=== PATIENT | male | born 1950 | race Caucasian/White ===

== ENCOUNTER → 2017-08-11 | Outpatient (CLI) | payer OTHER ==
--- NOTE | 2017-08-11 10:43 | DIAGNOSTIC IMAGING REPORT ---
AP STANDING VIEW OF BOTH KNEES; 3 VIEWS RIGHT KNEE CLINICAL HISTORY: Right knee pain. FINDINGS: An AP standing view of both knees with lateral, tunnel, and sunrise views of the right knee are obtained. No prior studies are available for comparison at the time of dictation. The skeletal structures appear osteopenic. No fracture is seen. There is mild tricompartmental degenerative joint space narrowing, greatest at the patellofemoral articulation. There is no evidence of osteochondral defect on the tunnel image. There is a tiny superior patellar enthesophyte. Minimal chondrocalcinosis is suggested peripherally within the medial compartment. There is no joint effusion. The overlying soft tissues are within normal limits. Survey images of the left knee on the frontal view show no acute abnormality. Mild narrowing is seen in the medial compartment. IMPRESSION: 1. No acute bony abnormality is identified in the right knee. 2. Osteopenia and mild degenerative change as above. 3. Suspect mild chondrocalcinosis within the medial compartment of the right knee. Electronically signed by: Karman Bello M.D. 08/11/2017 10:42 AM Dictated Date/Time: 08/11/2017 10:40 AM
== END | disposition home or self-care (01) ==
LOC: C.RDSM 10:25
PROVIDERS: ATTEND Family Medicine
DX: M25.561 Pain in right knee (principal); M85.861 Other specified disorders of bone density and structure, right lower leg

== ENCOUNTER 2020-07-09 08:50 | Inpatient (IN) ==
[2020-07-09] MEDS ORDERED: dexAMETHasone**PF** 10 MG/ML VIAL IV ONE (09:32)
--- NOTE | 2020-07-09 09:40 | Emergency Department Note ---
Impression & Plan COVID-19, Acute dehydration, Hypoxia ED Provider Note NAME: CORTEZ KIRK AGE: 70 SEX: M : 1950 ARRIVES VIA: Walk-In INFORMANT: Patient ED PROVIDER(S): Gael Altman DO CHIEF COMPLAINT: Shortness of breath HPI: Patient is a 70-year-old male Covid positive who presents the ER for cough and worsening shortness of breath. Tested positive around the of this month where he was seen in the ER. Cough has been present for the past 2 weeks. He denies any belly pain, nausea, vomiting, or diarrhea. No dysuria, urgency, or frequency. The shortness of breath has been gradually getting worse over the past couple days. Admits to a mild headache. No change in vision. No other exacerbating or remitting factors. ROS: See above HPI for pertinent positives & negatives. A total of 10 systems reviewed and were otherwise negative. PAST MEDICAL HISTORY:See Below PAST SURGICAL HISTORY:See Below FAMILY HISTORY:See Below SOCIAL HISTORY:See Below HOME MEDICATIONS:See Below ALLERGIES:See Below VITALS:See Below PHYSICAL EXAMINATION: GENERAL: Sitting up in bed, alert, well appearing, well nourished, no distress, non-toxic, on nasal cannula with persistent cough EYE EXAM: normal conjunctiva. OROPHARYNX: no exudate, no erythema, lips, buccal mucosa, and tongue normal and mucous membranes are moist NECK: supple, no nuchal rigidity, no adenopathy, non-tender LUNGS: Clear to auscultation. Normal chest wall mechanics HEART: no murmurs, S1 normal and S2 normal ABDOMEN: abdomen soft, non-tender, normo-active bowel sounds, no masses, no latoya ound or guarding. UPPER EXTREMITIES: upper extremities are grossly normal. LOWER EXTREMITIES: No pitting edema. Calves are equal bilateral NEURO EXAM: Normal sensorium, cranial nerves II-XII grossly intact, normal speech, no gross weakness of arms, no gross weakness of legs. MEDICAL DECISION MAKING: Patient is a 70-year-old male who presents the ER short of breath with upper respiratory symptoms who is Covid positive. IV was established blood was obtained. Labs show no significant leukocytosis or anemia. D-dimer was elevated. BMP with LFTs and troponin was negative. Procalcitonin was negative. Chest x-ray shows suggested slightly worsening. EKG was nondiagnostic. Patient was given fluids IV Decadron. He was updated bedside. He remained on 2 L nasal cannula throughout his stay in the ER was been to the hospital for hypoxia secondary to Covid. Triage Nursing notes reviewed. Limited review of prior medical records performed Vital Signs: reviewed and remarkable for no significant abnormalities Differential diagnosis: Differential diagnoses includes but is not limited to pneumonia, bronchitis, COPD/Asthma exacerbation, pneumothorax, pulmonary embolism, congestive heart failure, acute coronary syndrome ER treatment provided: See below Diagnostics interpreted by me: ECG: Sinus rhythm rate 78 Normal axis No PVCs QTC 446 Cardiac Monitoring: An order was placed for continuous cardiac monitoring. The monitor shows a rate of 94 with sinus rhythm. Laboratory studies: As stated above and show below. Imaging studies: Portable AP upright 1 view of the chest shows worsening multifocal pneumonia Consultation(s): Discussed with hospitalist for further evaluation Procedures: none Critical Care: I have personally spent 31 minutes of critical care time in the direct management of this patient. This includes bedside care, interpretation of diagnostic studies, and testing, discussion with consultants, patient, and family members, and other required patient management activities. This 31 minutes is in excess of all separately billable procedures. Past Med/Surg History Social History Smoking Status: Never smoker Hx Alcohol Use: No Hx Substance Use: No Preferred Language: South African Communication Tools: IPad Beliefs That Will Affect Care: None Current Living Situation: Family Feels Safe at Home: Yes Assistive Devices: Denture - Upper and Denture - Lower Allergies Allergies Allergy/AdvReac Type Severity Reaction Status Date / Time No Known Allergies Allergy Unverified 07/09/20 10:53 Home Meds Home Medications Medication Instructions Recorded Confirmed No Known Home Medications 07/05/20 07/09/20 Results & Data (ED) Vital Signs Vital Signs - 24 hr 07/09/20 09:06 07/09/20 09:18 07/09/20 09:30 Temperature 36.6 C Temperature Source Oral Pulse Rate 96 H 79 77 Pulse Rate [Apical] Pulse Rate from SpO2 Sensor 80 78 Pulse Rhythm Pulse Rhythm [Apical] Pulse Strength [Apical] Respiratory Rate 18 18 22 Respiratory Effort / Characteristics Respiratory Depth Respiratory Pattern Blood Pressure 115/76 167/92 H 162/92 H Blood Pressure [Left Arm] Blood Pressure Mean 89 117 115 Blood Pressure Mean [Left Arm] Blood Pressure Position [Left Arm] Pulse Oximetry 86 L 93 95 Oxygen Delivery Method Room Air Oxygen Flow Rate Sepsis Recent Fever Within 48 Hours No Sepsis New/Unexplained Change in Mental Status No Sepsis Action Taken by Nursing No Action Required Oxygen Flow Rate - Titration Pulse Oximetry Post Tiitration 07/09/20 09:51 07/09/20 10:19 07/09/20 10:30 Temperature Temperature Source Pulse Rate 75 75 77 Pulse Rate [Apical] 76 Pulse Rate from SpO2 Sensor 75 76 Pulse Rhythm Regular Pulse Rhythm [Apical] Regular Pulse Strength [Apical] Normal Respiratory Rate 18 22 22 Respiratory Effort / Characteristics Non-Labored Spontaneous Respiratory Depth Normal Respiratory Pattern Regular Blood Pressure 148/94 H 146/87 H Blood Pressure [Left Arm] 148/94 H Blood Pressure Mean 112 106 Blood Pressure Mean [Left Arm] 112 Blood Pressure Position [Left Arm] Lying Pulse Oximetry 95 96 95 Oxygen Delivery Method Nasal Cannula Oxygen Flow Rate 2 Sepsis Recent Fever Within 48 Hours Sepsis New/Unexplained Change in Mental Status Sepsis Action Taken by Nursing Oxygen Flow Rate - Titration 2 Pulse Oximetry Post Tiitration 95 07/09/20 11:00 Temperature Temperature Source Pulse Rate 71 Pulse Rate [Apical] Pulse Rate from SpO2 Sensor 71 Pulse Rhythm Pulse Rhythm [Apical] Pulse Strength [Apical] Respiratory Rate 22 Respiratory Effort / Characteristics Respiratory Depth Respiratory Pattern Blood Pressure 141/85 H Blood Pressure [Left Arm] Blood Pressure Mean 103 Blood Pressure Mean [Left Arm] Blood Pressure Position [Left Arm] Pulse Oximetry 95 Oxygen Delivery Method Oxygen Flow Rate Sepsis Recent Fever Within 48 Hours Sepsis New/Unexplained Change in Mental Status Sepsis Action Taken by Nursing Oxygen Flow Rate - Titration Pulse Oximetry Post Tiitration Laboratory Data Result diagrams: 07/09/20 10:00 07/09/20 10:00 Lab Results 07/09/20 07/09/20 07/09/20 Range/Units 10:00 10:00 10:00 WBC 7.23 (4.8-10.8) K/uL RBC 4.26 L (4.7-6.1) M/uL Hgb 13.7 L (14.0-18.0) g/dL Hct 39.6 L (42-52) % MCV 93.0 (80-100) fL MCH 32.2 (25-34) pg MCHC 34.6 (32-36) g/dL RDW Std Deviation 48.9 H (36.4-46.3) fL RDW Coeff of Uri 14.4 (11.5-14.5) % Plt Count 402 H (130-400) K/uL MPV 9.5 (7.4-10.4) fL Immature Gran % (Auto) 0.4 % Neut % (Auto) 82.0 % Lymph % (Auto) 9.1 % Isabela % (Auto) 8.3 % Eos % (Auto) 0.1 % Baso % (Auto) 0.1 % Neut # (Auto) 5.92 (1.4-6.5) K/uL Lymph # (Auto) 0.66 L (1.2-3.4) K/uL Isabela # (Auto) 0.60 H (0.11-0.59) K/uL Eos # (Auto) 0.01 (0-0.5) K/uL Baso # (Auto) 0.01 (0-0.2) K/uL Immature Gran # (Auto) 0.03 H (0.00-0.02) K/uL ESR (0-20) mm/hr D-Dimer 1080 H* (0-500) ug/L FEU Sodium 135 L (136-145) mmol/L Potassium 3.6 (3.5-5.1) mmol/L Chloride 102 (98-107) mmol/L Carbon Dioxide 29 (21-32) mmol/L Anion Gap 4.0 (3-11) BUN 14 (7-18) mg/dl Creatinine 0.89 (0.6-1.4) mg/dl Est Cr Clr Drug Dosing Not Reportable Est GFR ( Amer) 101.8 Est GFR (Non-Af Amer) 87.9 BUN/Creatinine Ratio 15.4 (10-20) Glucose 162 H (70-99) mg/dl Calcium 8.6 (8.5-10.1) mg/dl Total Bilirubin 0.6 (0.2-1) mg/dl AST 34 (15-37) U/L ALT 29 (12-78) U/L Alkaline Phosphatase 71 (45-117) U/L Troponin I < 0.015 (0-0.045) ng/ml C-Reactive Protein (0-0.29) mg/dl Total Protein 7.7 (6.4-8.2) gm/dl Albumin 2.2 L (3.4-5.0) gm/dl Globulin 5.5 H (2.5-4.0) gm/dl Albumin/Globulin Ratio 0.4 L (0.9-2) Lipase 139 (73-393) U/L Procalcitonin (0-0.5) ng/ml 07/09/20 07/09/20 07/09/20 Range/Units 10:00 10:00 10:00 WBC (4.8-10.8) K/uL RBC (4.7-6.1) M/uL Hgb (14.0-18.0) g/dL Hct (42-52) % MCV (80-100) fL MCH (25-34) pg MCHC (32-36) g/dL RDW Std Deviation (36.4-46.3) fL RDW Coeff of Uri (11.5-14.5) % Plt Count (130-400) K/uL MPV (7.4-10.4) fL Immature Gran % (Auto) % Neut % (Auto) % Lymph % (Auto) % Isabela % (Auto) % Eos % (Auto) % Baso % (Auto) % Neut # (Auto) (1.4-6.5) K/uL Lymph # (Auto) (1.2-3.4) K/uL Isabela # (Auto) (0.11-0.59) K/uL Eos # (Auto) (0-0.5) K/uL Baso # (Auto) (0-0.2) K/uL Immature Gran # (Auto) (0.00-0.02) K/uL ESR 70 H (0-20) mm/hr D-Dimer (0-500) ug/L FEU Sodium (136-145) mmol/L Potassium (3.5-5.1) mmol/L Chloride (98-107) mmol/L Carbon Dioxide (21-32) mmol/L Anion Gap (3-11) BUN (7-18) mg/dl Creatinine (0.6-1.4) mg/dl Est Cr Clr Drug Dosing Est GFR ( Amer) Est GFR (Non-Af Amer) BUN/Creatinine Ratio (10-20) Glucose (70-99) mg/dl Calcium (8.5-10.1) mg/dl Total Bilirubin (0.2-1) mg/dl AST (15-37) U/L ALT (12-78) U/L Alkaline Phosphatase (45-117) U/L Troponin I (0-0.045) ng/ml C-Reactive Protein 9.63 H (0-0.29) mg/dl Total Protein (6.4-8.2) gm/dl Albumin (3.4-5.0) gm/dl Globulin (2.5-4.0) gm/dl Albumin/Globulin Ratio (0.9-2) Lipase (73-393) U/L Procalcitonin 0.08 (0-0.5) ng/ml Administered Medications Enoxaparin Sodium (Enoxaparin Inj 40 Mg/0.4 Ml Syr) 40 mg SQ Q12 TISH Stop: 08/08/20 12:14 Last Admin: 07/09/20 13:50 Dose: 40 mg Documented by: [id number] Discontinued Medications Dexamethasone Sodium Phosphate (DexamethasonePf 10 Mg/Ml Vial) 6 mg IV NOW ONE Stop: 07/09/20 09:33 Last Admin: 07/09/20 10:00 Dose: 6 mg Documented by: [id number] Imaging Data Radiologist's Impression: Chest X-Ray 07/09/20 09:31 XR chest 1V portable CLINICAL HISTORY: Atypical chest pain COMPARISON STUDY: 07/05/2020 FINDINGS: The cardiac and mediastinal contours remain stable. There is slight progression in the bilateral pulmonary airspace opacities consistent with a multifocal pneumonia. There are no significant pleural effusions.[ IMPRESSION: 1. Slight progression in the bilateral pulmonary airspace opacities suspicious for a multifocal pneumonia possibly viral ACT 112: Negative or not required by law. Electronically signed by: Arthur Pope M.D. 07/09/2020 9:51 AM Discharge Plan Visit Data Chief Complaint: Shortness of Breath/Dyspnea Stated Complaint: SOB ED Provider: Gael Altman Discharge Problem: COVID-19, Acute dehydration, Hypoxia Patient Disposition: Admitted As Inpatient Discharge Instructions Interventions: ED Discharge Assessment Last Done: 07/09/20 12:20
--- NOTE | 2020-07-09 09:52 | XRay Report ---
XR chest 1V portable CLINICAL HISTORY: Atypical chest pain COMPARISON STUDY: 07/05/2020 FINDINGS: The cardiac and mediastinal contours remain stable. There is slight progression in the bila teral pulmonary airspace opacities consistent with a multifocal pneumonia. There are no significant p leural effusions.[ IMPRESSION: 1. Slight progression in the bilateral pulmonary airspace opacities suspicious for a multifocal pneum onia possibly viral ACT 112: Negative or not required by law. Electronically signed by: Arthur Pope M.D. 07/09/2020 9:51 AM
[2020-07-09 10:19] LABS: Basophils # (auto) 0.01 K/uL (0-0.2); Basophils % (auto) 0.1 %; Eosinophils # (auto) 0.01 K/uL (0-0.5); Eosinophils % (auto) 0.1 %; Hematocrit (blood only) 39.6 % (42-52); Hemoglobin 13.7 g/dL (14.0-18.0); Immature Granulocytes # (auto) 0.03 K/uL (0.00-0.02); Immature Granulocytes % (auto) 0.4 %; Lymphocytes # (auto) 0.66 K/uL (1.2-3.4); Lymphocytes % (auto) 9.1 %; Mean Corpuscular Hemoglobin 32.2 pg (25-34); Mean Corpuscular Hgb Conc 34.6 g/dL (32-36); Mean Platelet Volume 9.5 fL (7.4-10.4); Monocytes % (auto) 8.3 %; Neutrophils # (auto) 5.92 K/uL (1.4-6.5); Platelet Count 402 K/uL (130-400); RDW Coefficient of Variation 14.4 % (11.5-14.5); RDW Standard Deviation 48.9 fL (36.4-46.3); Red Blood Count 4.26 M/uL (4.7-6.1); White Blood Count 7.23 K/uL (4.8-10.8)
[2020-07-09 10:40] LABS: Alanine Aminotransferase 29 U/L (12-78); Albumin Level 2.2 gm/dl (3.4-5.0); Aspartate Aminotransferase 34 U/L (15-37); BUN Creatinine Ratio 15.4 (10-20); Blood Urea Nitrogen 14 mg/dl (7-18); Calcium 8.6 mg/dl (8.5-10.1); Carbon Dioxide 29 mmol/L (21-32); Chloride 102 mmol/L (98-107); Est GFR (African American) 101.8; Est GFR (Non-African American) 87.9; Glucose 162 mg/dl (70-99); Lipase 139 U/L (73-393); Potassium 3.6 mmol/L (3.5-5.1); Sodium 135 mmol/L (136-145)
[2020-07-09 10:52] LABS: Albumin Globulin Ratio 0.4 (0.9-2); Alkaline Phosphatase 71 U/L (45-117); Bilirubin,Total 0.6 mg/dl (0.2-1); Globulin 5.5 gm/dl (2.5-4.0); Total Protein 7.7 gm/dl (6.4-8.2); Troponin I < 0.015 ng/ml (0-0.045)
--- NOTE | 2020-07-09 11:41 | History & Physical Report ---
Date of Service July 09, 2020 Assessment & Plan (1) COVID-19: Admit to tele Patient recevied decadron IV 6 mg. will continue Decadron 6 mg PO daily Will place on a regular diet. Patient does not have signifcant PMH as he does not follow with a PCP. will place on lovenox BID dose, obtained inflammatory markers. currently on 2L NC. will monitor trend. will hold off antibioitics unless procal is positive or patient develops fever. Not a candidate for remdesevir Full code DVT proph (2) Weakness: From above. will monitor, will likely require PT/OT eval as he recovers. would want us to call her sister for updates as she speaks German. Her agrees to this. Ellen Gomez wifes sister: :[phone] History of Present Illness Chief Complaint: COVID worsening. Primary Care Provider: Evi George PA-C History obtained via immigration lawyer. at bedside. 70 yo male with no significant past medical history. Presents to the ER with 2 week history of fatigue cough with worsening SHOB. Patient came to the hospital about 4 days ago for these symptoms, but was found to be on Room air and did not meet criteria for admission. He states though that over the past 2 days, his cough and SOB has become worse, and patient also has a poor apetite. This prompted the patient to return. PMH: Lipoma reolved over 3 years ago from neck Allergies Allergy/AdvReac Type Severity Reaction Status Date / Time No Known Allergies Allergy Unverified 07/09/20 10:53 Home Medications Medication Instructions Recorded Confirmed Type No Known Home Medications 07/05/20 07/09/20 History Past Med/Surg History Social History Smoking Status: Never smoker Hx Alcohol Use: No Hx Substance Use: No Preferred Language: Ethiopian Communication Tools: IPad Beliefs That Will Affect Care: None Current Living Situation: Family Feels Safe at Home: Yes Assistive Devices: Oxygen - Continuous Review of Systems Constitutional: + chills, + fatigue, + malaise and + weakness; no fever and no sweats Eyes: no blind spots and no discharge Ear, Nose, Mouth, Throat: no ear pain and no dizziness Respiratory: + cough and + dyspnea Cardiovascular: no chest pain Gastrointestinal: no bloating Genitourinary: no urinary frequency Musculoskeletal: no radicular pain Integumentary: no rash Neurologic: no numbness Psychiatric: no behavioral changes Endocrine: no polydipsia Hematologic / Lymphatic: no easy bleeding and no lymphadenopathy Allergy / Immunological: no lip swelling Physical Exam Constitutional: WD/WN, vitals as above Eyes: PERRL, conjunctivae normal, anicteric sclerae ENMT: external ear and nose normal, oropharynx normal Neck: trachea midline, no thyromegaly Respiratory: + respiratory distress; does not use accessory muscles Auscultation: + rales (bilateral) Cardiovascular: RRR, no murmur, no edema Gastrointestinal (Abdomen): normal bowel sounds, soft, nontender, no hepatosplenomegaly Musculoskeletal: no cyanosis or clubbing, extremities motor strength 5/5 Skin: no rashes, warm and dry Neurologic: PERRL, EOMI, accommodation nl, no face palsy, no dysarthria Psychiatric: Orientation: alert Results & Data Results & Data ([facility]) Vital Signs (Past 12 Hours) Vital Signs Temp Pulse Pulse Resp BP BP Pulse Ox 07/09/20 11:00 71 22 141/85 H 95 07/09/20 10:30 77 22 146/87 H 95 07/09/20 10:19 75 22 148/94 H 96 07/09/20 09:51 75 76 18 148/94 H 95 07/09/20 09:30 77 22 162/92 H 95 07/09/20 09:18 79 18 167/92 H 93 07/09/20 09:06 36.6 C 96 H 18 115/76 86 L PG Care Time/CCT Total # of Minutes Spent Total Time Spent with Patient: Total time spent is greater than 50% in coordination of care (as documented) at patient's floor/unit and/or counseling patient: Coding Level of Care Code 56211 Initial Inpt Care Lvl 3 Diagnoses COVID-19 U07.1 Weakness R53.1
[2020-07-09 12:50] LABS: D Dimer 1080 ug/L FEU (0-500)
[2020-07-09] MEDS: ENOXAPARIN INJ 40 MG/0.4 ML SYR SQ SCH ×2 (13:50→22:45)
--- NOTE | 2020-07-09 17:38 | Electrocardiogram Report ---
Test Reason : Blood Pressure : / mmHG Vent. Rate : 078 BPM Atrial Rate : 078 BPM P-R Int : 160 ms QRS Dur : 098 ms QT Int : 392 ms P-R-T Axes : 033 033 058 degrees QTc Int : 446 ms Normal sinus rhythm Normal ECG When compared with ECG of 05-JUL-2020 11:43, No significant change was found Confirmed by Chandu Rodriguez ([id number]) on 07/09/2020 5:38:20 PM Referred By: SELF Confirmed By:Will Rodriguez
[2020-07-09] MEDS: BENZONATATE 100 MG CAPSULE PO SCH (22:44)
[2020-07-10 08:04] LABS: Basophils # (auto) 0.01 K/uL (0-0.2); Basophils % (auto) 0.1 %; Hemoglobin 13.9 g/dL (14.0-18.0); Immature Granulocytes # (auto) 0.04 K/uL (0.00-0.02); Immature Granulocytes % (auto) 0.5 %; Lymphocytes # (auto) 0.79 K/uL (1.2-3.4); Lymphocytes % (auto) 10.3 %; Mean Corpuscular Hemoglobin 32.3 pg (25-34); Mean Corpuscular Hgb Conc 34.8 g/dL (32-36); Mean Corpuscular Volume 92.8 fL (80-100); Mean Platelet Volume 9.8 fL (7.4-10.4); Monocytes # (auto) 0.69 K/uL (0.11-0.59); Neutrophils # (auto) 6.15 K/uL (1.4-6.5); Neutrophils % (auto) 80.1 %; Platelet Count 492 K/uL (130-400); RDW Coefficient of Variation 14.3 % (11.5-14.5); RDW Standard Deviation 48.7 fL (36.4-46.3); Red Blood Count 4.31 M/uL (4.7-6.1); White Blood Count 7.68 K/uL (4.8-10.8)
[2020-07-10 08:39] LABS: BUN Creatinine Ratio 26.2 (10-20); Calcium 9.6 mg/dl (8.5-10.1); Creatinine Clr Calc Pharmacy 75.9 ml/min; Est GFR (African American) 109.2; Est GFR (Non-African American) 94.3; Potassium 3.9 mmol/L (3.5-5.1)
[2020-07-10] MEDS ORDERED: ACETAMINOPHEN 500 MG TAB PO PRN (08:41)
[2020-07-10] MEDS ORDERED: dexAMETHasone 1 MG TAB PO SCH (09:00)
[2020-07-10] MEDS ORDERED: BENZONATATE 100 MG CAPSULE PO SCH (09:00)
[2020-07-10] MEDS: dexAMETHasone 6 MG in SYRINGE 0 ML IV SCH (09:48)
[2020-07-10] MEDS: BENZONATATE 100 MG CAPSULE PO SCH ×3 (09:49→21:21)
[2020-07-10] MEDS: ENOXAPARIN INJ 40 MG/0.4 ML SYR SQ SCH ×2 (09:50→21:21)
--- NOTE | 2020-07-10 14:51 | Electrocardiogram Report ---
Test Reason : Blood Pressure : / mmHG Vent. Rate : 084 BPM Atrial Rate : 084 BPM P-R Int : 152 ms QRS Dur : 098 ms QT Int : 390 ms P-R-T Axes : 059 014 045 degrees QTc Int : 460 ms Normal sinus rhythm Nonspecific ST abnormality Abnormal ECG When compared with ECG of 09-JUL-2020 09:51, No significant change was found Confirmed by Chandu Rodriguez ([id number]) on 07/10/2020 2:51:30 PM Referred By: REFERRED SELF Confirmed By:Will Rodriguez
--- NOTE | 2020-07-10 16:06 | Hospitalist Progress Note ---
Date of Service July 10, 2020 Assessment & Plan (1) COVID-19: Shortness of breathPneumonia due to coronavirus disease 2019 Presented after approximately 2 weeks of symptoms with headache, body aches, generalized weakness, and cough. He actually had an episode of syncope several days prior to admission and was sent home from the ER on that day. Now presents with worsening and was found to have acute respiratory failure with hypoxia requiring oxygen Chest x-ray with multifocal pneumonia consistent with viral pneumonia Troponin negative, procalcitonin negative, CRP elevated at 9.63, ESR elevated at 70, D-dimer elevated at 1080, LFTs negative. Pulse ox was 86% on arrival and he is now much improved on 2 L nasal cannula -Continue telemetry monitoring -Continue Decadron but change to IV in case having poor absorption issues due to viral syndrome -He is not a candidate for remdesivir or convalescent plasma as it has been about 2 weeks of symptoms at this point -Continue supplemental O2 to keep pulse ox greater than 90% -Continue prone position periodically throughout the day as discussed with patient -Continue Tessalon Perles scheduled as needed -Chest pain is relieved with Tylenol and is likely due to inflammation/pleurisy -Lovenox 40 mg SQ twice daily for DVT prophylaxis -Follow CBC, CMP, CRP in the morning (2) Weakness: From above. will monitor, will likely require PT/OT eval prior to discharge (3) Hypoxia: As above (4) Chest pain: Has been having constant chest pain for several days which was improved with Tylenol here today D-dimer is elevated but likely secondary to Covid Hypoxia secondary to bilateral multifocal infiltrates ECG is with nonspecific ST-T wave changes but nothing of significance and troponin is negative x2 Chest pain likely secondary to pleurisy and will continue Tylenol as needed (5) DVT prophylaxis: Lovenox SQ twice daily given high risk for DVT/PE Disposition-continue telemetry status Full code would want us to call her sister for updates as she speaks Croatian. Her agrees to this. Ellen Gomez 's sister: [phone] Admission and Anticipated Discharge Date Admission Date: July 09, 2020 Subjective Communicated with pt using the [place] professor of literacy on the iPad. He reports feeling so much better. He had some constant chest pain for a while which is now resolved after taking tylenol this AM. ECGs unchanged and without ischemia. No calf pain. No SOB and still with cough. Is lying prone when I saw him and plans on continuing to do so. No abdominal pain, is eating well. Moving his bowels, no diarrhea, and is making urine. Tele with NSR rates 50s-70s, PACs and some bigem Review of Systems Review of Systems: All systems reviewed & are unremarkable except as noted in HPI & below Physical Exam Constitutional: WD/WN, vitals as above Eyes: PERRL, conjunctivae normal, anicteric sclerae ENMT: external ear and nose normal, oropharynx normal Neck: trachea midline, no thyromegaly Respiratory: normal respiratory effort, lungs clear to auscultation Cardiovascular: RRR, no murmur, no edema Chest (Breasts): Chest: normal inspection of chest Gastrointestinal (Abdomen): normal bowel sounds, soft, nontender, no hepatosplenomegaly Musculoskeletal: Extremities: extremities normal to inspection; no cyanosis and no clubbing Skin: no rashes, warm and dry Neurologic: moves all extremities and awake; no focal motor deficits Psychiatric: A+Ox3, euthymic affect Lymphatic: no lymphedema Results & Data Results & Data ([facility]) Vital Signs (Past 12 Hours) Vital Signs Temp Pulse Pulse Resp BP Pulse Ox Pulse Ox 07/10/20 15:05 93 07/10/20 13:50 96 07/10/20 11:21 36.5 C 76 19 124/83 92 07/10/20 11:07 92 07/10/20 10:22 91 07/10/20 09:00 88 L 07/10/20 08:00 65 92 07/10/20 07:27 36.7 C 65 18 154/85 H 89 L 07/10/20 04:00 58 L Laboratory Results 07/10/20 07/10/20 07/10/20 Range/Units 09:00 07:21 07:21 WBC 7.68 (4.8-10.8) K/uL RBC 4.31 L (4.7-6.1) M/uL Hgb 13.9 L (14.0-18.0) g/dL Hct 40.0 L (42-52) % MCV 92.8 (80-100) fL MCH 32.3 (25-34) pg MCHC 34.8 (32-36) g/dL RDW Std Deviation 48.7 H (36.4-46.3) fL RDW Coeff of Uri 14.3 (11.5-14.5) % Plt Count 492 H (130-400) K/uL MPV 9.8 (7.4-10.4) fL Immature Gran % (Auto) 0.5 % Neut % (Auto) 80.1 % Lymph % (Auto) 10.3 % Teller % (Auto) 9.0 % Eos % (Auto) 0.0 % Baso % (Auto) 0.1 % Neut # (Auto) 6.15 (1.4-6.5) K/uL Lymph # (Auto) 0.79 L (1.2-3.4) K/uL Teller # (Auto) 0.69 H (0.11-0.59) K/uL Eos # (Auto) 0.00 (0-0.5) K/uL Baso # (Auto) 0.01 (0-0.2) K/uL Immature Gran # (Auto) 0.04 H (0.00-0.02) K/uL Sodium 136 (136-145) mmol/L Potassium 3.9 (3.5-5.1) mmol/L Chloride 103 (98-107) mmol/L Carbon Dioxide 25 (21-32) mmol/L Anion Gap 8.0 (3-11) BUN 20 H (7-18) mg/dl Creatinine 0.75 (0.6-1.4) mg/dl Est Cr Clr Drug Dosing 75.9 ml/min Est GFR ( Amer) 109.2 Est GFR (Non-Af Amer) 94.3 BUN/Creatinine Ratio 26.2 H (10-20) Glucose 129 H (70-99) mg/dl Calcium 9.6 (8.5-10.1) mg/dl Troponin I < 0.015 (0-0.045) ng/ml ECG Additional Comments: ECG on 07/10/2020 at 8:57 AM with normal sinus rhythm, rate 84, nonspecific ST abnormality in inferior leads, no significant change from previous PG Care Time/CCT Total # of Minutes Spent Total Time Spent with Patient: Total time spent is greater than 50% in coordination of care (as documented) at patient's floor/unit and/or counseling patient: Coding Level of Care Code 65359 Subseq Hosp Care Lvl 3 Diagnoses COVID-19 U07.1 Weakness R53.1 Hypoxia R09.02 Chest pain R07.9 DVT prophylaxis Z29.9
[2020-07-11] MEDS: ENOXAPARIN INJ 40 MG/0.4 ML SYR SQ SCH ×2 (08:29→20:36)
[2020-07-11] MEDS: BENZONATATE 100 MG CAPSULE PO SCH ×3 (08:30→20:36)
[2020-07-11] MEDS: dexAMETHasone 6 MG in SYRINGE 0 ML IV SCH (08:30)
[2020-07-11] MEDS ORDERED: ALBUTEROL HFA 8 GM INHALER INH ONE (14:21)
[2020-07-11] MEDS ORDERED: ALBUTEROL HFA 8 GM INHALER INH PRN (14:21)
--- NOTE | 2020-07-11 14:22 | Hospitalist Progress Note ---
Date of Service July 11, 2020 Assessment & Plan (1) COVID-19: Pneumonia due to coronavirus disease 2019 Presented after approximately 2 weeks of symptoms with headache, body aches, generalized weakness, shortness of breath, and cough. He actually had an episode of syncope several days prior to admission and was sent home from the ER on that day. Now presents with worsening and was found to have acute respiratory failure with hypoxia requiring oxygen Chest x-ray with multifocal pneumonia consistent with viral pneumonia Troponin negative, procalcitonin negative, CRP elevated at 9.63, ESR elevated at 70, D-dimer elevated at 1080, LFTs negative. Pulse ox was 86% on arrival and he is now improved however oxygenation requirement has gone up to 3 L. He is in no respiratory distress Remains in sinus rhythm on telemetry -Continue telemetry monitoring -Continue Decadron 6 mg IV once daily x10-day course -He is not a candidate for remdesivir or convalescent plasma as it has been about 2 weeks of symptoms at this point -Continue supplemental O2 to keep pulse ox greater than 90% and wean off as tolerated -Add flutter valve and incentive spirometry -Continue prone position periodically throughout the day as discussed with patient -Continue Tessalon Perles scheduled as needed -Chest pain is relieved with Tylenol and is likely due to inflammation/pleurisy -Lovenox 40 mg SQ twice daily for DVT prophylaxis -Follow CBC, CMP, CRP in the morning (2) Weakness: From above. will monitor, will likely require PT/OT eval prior to discharge-we will add for tomorrow (3) Hypoxia: As above (4) Chest pain: Has been having constant chest pain for several days which was improved with Tylenol here today D-dimer is elevated but likely secondary to Covid Hypoxia secondary to bilateral multifocal infiltrates ECG is with nonspecific ST-T wave changes but nothing of significance and troponin is negative x2 Chest pain likely secondary to pleurisy and will continue Tylenol as needed (5) DVT prophylaxis: Lovenox SQ twice daily given high risk for DVT/PE Disposition-continue telemetry status Full code would want us to call her sister for updates as she speaks Indonesian. Her agrees to this. Ellen Gomez 's sister: [phone] Admission and Anticipated Discharge Date Admission Date: July 09, 2020 Subjective Patient reports feeling "okay" today. Still having a cough but not short of breath. Is up to 3 L on the nasal cannula. I described for him the use of a flutter valve which I ordered. He is out of bed to chair. He is eating meals and moving his bowels. Telemetry with normal sinus rhythm with rates in the 50s to 60s Review of Systems Review of Systems: All systems reviewed & are unremarkable except as noted in HPI & below Physical Exam Constitutional: WD/WN, vitals as above Eyes: + anicteric sclerae Neck: trachea midline, no thyromegaly Respiratory: normal respiratory effort Auscultation: + crackles (At lower lung alvarez bilaterally); no rhonchi and no wheezes Cardiovascular: RRR, no murmur, no edema Chest (Breasts): Chest: normal inspection of chest Gastrointestinal (Abdomen): normal bowel sounds, soft, nontender, no hepatosplenomegaly Musculoskeletal: Extremities: extremities normal to inspection; no cyanosis and no clubbing Skin: no rashes, warm and dry Neurologic: moves all extremities and awake; no focal motor deficits Lymphatic: no lymphedema Results & Data Results & Data ([facility]) Vital Signs (Past 12 Hours) Vital Signs Temp Pulse Pulse Resp BP Pulse Ox 07/11/20 11:24 36.7 C 63 19 157/85 H 90 07/11/20 07:15 36.6 C 62 18 173/88 H 93 07/11/20 07:00 60 07/11/20 03:27 36.7 C 65 18 168/86 H 89 L PG Care Time/CCT Total # of Minutes Spent Total Time Spent with Patient: Total time spent is greater than 50% in coordination of care (as documented) at patient's floor/unit and/or counseling patient: Coding Level of Care Code 64360 Subseq Hosp Care Lvl 2 Diagnoses COVID-19 U07.1 Weakness R53.1 Hypoxia R09.02 Chest pain R07.9 DVT prophylaxis Z29.9
[2020-07-12 06:46] LABS: Basophils # (auto) 0.01 K/uL (0-0.2); Basophils % (auto) 0.1 %; Hematocrit (blood only) 39.2 % (42-52); Hemoglobin 13.8 g/dL (14.0-18.0); Immature Granulocytes # (auto) 0.15 K/uL (0.00-0.02); Immature Granulocytes % (auto) 1.5 %; Lymphocytes # (auto) 1.43 K/uL (1.2-3.4); Lymphocytes % (auto) 14.2 %; Mean Corpuscular Hgb Conc 35.2 g/dL (32-36); Mean Corpuscular Volume 93.8 fL (80-100); Mean Platelet Volume 9.4 fL (7.4-10.4); Monocytes # (auto) 0.91 K/uL (0.11-0.59); Neutrophils # (auto) 7.59 K/uL (1.4-6.5); Neutrophils % (auto) 75.2 %; Platelet Count 559 K/uL (130-400); RDW Coefficient of Variation 14.5 % (11.5-14.5); RDW Standard Deviation 49.3 fL (36.4-46.3); Red Blood Count 4.18 M/uL (4.7-6.1); White Blood Count 10.09 K/uL (4.8-10.8)
[2020-07-12 07:15] LABS: Albumin Level 2.2 gm/dl (3.4-5.0); BUN Creatinine Ratio 25.1 (10-20); C Reactive Protein 2.24 mg/dl (0-0.29); Calcium 9.3 mg/dl (8.5-10.1); Creatinine Clr Calc Pharmacy 64.7 ml/min; Est GFR (African American) 102.3; Est GFR (Non-African American) 88.3; Magnesium 2.6 mg/dl (1.8-2.4); Potassium 3.7 mmol/L (3.5-5.1)
[2020-07-12 07:18] LABS: Albumin Globulin Ratio 0.4 (0.9-2); Bilirubin,Total 0.5 mg/dl (0.2-1); Globulin 5.1 gm/dl (2.5-4.0); Total Protein 7.3 gm/dl (6.4-8.2)
[2020-07-12] MEDS: ENOXAPARIN INJ 40 MG/0.4 ML SYR SQ SCH ×2 (08:21→20:27)
[2020-07-12] MEDS: BENZONATATE 100 MG CAPSULE PO SCH ×2 (08:21→14:57)
[2020-07-12] MEDS: dexAMETHasone 6 MG in SYRINGE 0 ML IV SCH (08:21)
[2020-07-12] MEDS: ALBUTEROL HFA 8 GM INHALER INH SCH ×2 (11:57→19:23)
[2020-07-12] MEDS ORDERED: dexAMETHasone 14 MG in SYRINGE 0 ML IV ONE (16:25)
[2020-07-12] MEDS ORDERED: BENZONATATE 100 MG CAPSULE PO PRN (16:56)
[2020-07-12] MEDS ORDERED: dexAMETHasone 14 MG in DEXTROSE 5% 25 ML IV ONE (17:00)
--- NOTE | 2020-07-12 20:14 | Hospitalist Progress Note ---
Date of Service July 12, 2020 Assessment & Plan (1) COVID-19: Pneumonia due to coronavirus disease 2019 Presented after approximately 2 weeks of symptoms with headache, body aches, generalized weakness, shortness of breath, and cough. He actually had an episode of syncope several days prior to admission and was sent home from the ER on that day. Now presents with worsening and was found to have acute respiratory failure with hypoxia requiring oxygen Chest x-ray with multifocal pneumonia consistent with viral pneumonia Troponin negative, procalcitonin negative, CRP elevated at 9.63, ESR elevated at 70, D-dimer elevated at 1080, LFTs negative. Pulse ox was 86% on arrival and he was initially improved however oxygenation requirement has gone up over the last 2 days to 13 L nasal cannula today He is in no respiratory distress Remains in sinus rhythm on telemetry with sinus pauses as below CRP has trended downward today to 2.24 He was given incentive spirometry today and was able to be weaned back down to 8 L nasal cannula He continues prone positioning intermittently -Continue telemetry monitoring -Continue Decadron but will increase dose to 20 mg IV once daily x 5 day course followed by 10 mg x 5-day course -Ordered high flow nasal cannula Vapotherm for use if needs more than 10 L by nasal cannula -He is not a candidate for remdesivir or convalescent plasma as it has been about 2 weeks of symptoms at this point -Continue supplemental O2 to keep pulse ox greater than 90% and wean off as tolerated -Add flutter valve and incentive spirometry-he did not have an incentive spirometer in the room despite it being ordered yesterday-this was obtained by nursing today -Continue Tessalon Perles but make as needed rather than scheduled -Chest pain is relieved with Tylenol and is likely due to inflammation/pleurisy -Continue Lovenox 40 mg SQ twice daily for DVT prophylaxis -Follow CBC, CMP, CRP in the morning (2) Weakness: From above. will monitor, will likely require PT/OT eval prior to discharge (3) Hypoxia: As above (4) Chest pain: Has been having constant chest pain for several days which was improved with Tylenol D-dimer is elevated but likely secondary to Covid Hypoxia secondary to bilateral multifocal infiltrates ECG is with nonspecific ST-T wave changes but nothing of significance and troponin is negative x2 Chest pain likely secondary to pleurisy and will continue Tylenol as needed (5) Sinus pause: With several 2-3.8-second sinus pauses versus blocked beats seen on teleme try in the last 1 to 2 days They are asymptomatic each time and not necessarily associated with sleeping ECG performed again today here is normal We will review telemetry with the wick tender if this continues to happen but most likely not concerning Continue to monitor on telemetry (6) DVT prophylaxis: Lovenox SQ twice daily given high risk for DVT/PE Disposition-continue telemetry status Full code would want us to call her sister for updates as she speaks Iraqi. Her agrees to this. Ellen Gomez 's sister: [phone] Admission and Anticipated Discharge Date Admission Date: July 09, 2020 Subjective Patient reports still coughing and short of breath at times. Has no other real complaints. He has had multiple 2 to 3-second pauses versus blocked beats on telemetry that are asymptomatic in the last 24 hours. He did however have an increasing oxygen demand through the night and day and was at 13 L when I saw him. He was able to demonstrate for nursing how to use incentive spirometer and was able to be weaned down then to 8 L nasal cannula. Review of Systems Review of Systems: All systems reviewed & are unremarkable except as noted in HPI & below Physical Exam Constitutional: WD/WN, vitals as above Eyes: + anicteric sclerae Neck: trachea midline, no thyromegaly Respiratory: normal respiratory effort Auscultation: + crackles (At lower lung alvarez bilaterally); no rhonchi and no wheezes Cardiovascular: RRR, no murmur, no edema Chest (Breasts): Chest: normal inspection of chest Gastrointestinal (Abdomen): normal bowel sounds, soft, nontender, no hepatosplenomegaly Musculoskeletal: Extremities: extremities normal to inspection; no cyanosis and no clubbing Skin: no rashes, warm and dry Neurologic: moves all extremities and awake; no focal motor deficits Psychiatric: Orientation: alert Eye Contact: good eye contact Speech: normal rate/rhythm/volume of speech Lymphatic: no lymphedema Results & Data Results & Data ([facility]) Vital Signs (Past 12 Hours) Vital Signs Temp Pulse Pulse Resp BP Pulse Ox 07/12/20 19:49 36.7 C 66 20 134/77 93 07/12/20 19:23 60 18 92 07/12/20 18:45 96 07/12/20 18:17 96 07/12/20 18:10 97 07/12/20 17:53 95 07/12/20 17:43 61 20 162/92 H 94 07/12/20 15:29 37.0 C 64 20 131/78 98 07/12/20 15:20 98 07/12/20 14:30 55 L 07/12/20 13:56 95 07/12/20 12:06 87 L 07/12/20 12:00 70 18 87 L 07/12/20 11:30 37.1 C 71 22 161/80 H 91 07/12/20 10:26 95 07/12/20 10:05 90 07/12/20 09:50 86 L Laboratory Results 07/12/20 07/12/20 Range/Units 06:23 06:23 WBC 10.09 (4.8-10.8) K/uL RBC 4.18 L (4.7-6.1) M/uL Hgb 13.8 L (14.0-18.0) g/dL Hct 39.2 L (42-52) % MCV 93.8 (80-100) fL MCH 33.0 (25-34) pg MCHC 35.2 (32-36) g/dL RDW Std Deviation 49.3 H (36.4-46.3) fL RDW Coeff of Uri 14.5 (11.5-14.5) % Plt Count 559 H (130-400) K/uL MPV 9.4 (7.4-10.4) fL Immature Gran % (Auto) 1.5 % Neut % (Auto) 75.2 % Lymph % (Auto) 14.2 % [place] % (Auto) 9.0 % Eos % (Auto) 0.0 % Baso % (Auto) 0.1 % Neut # (Auto) 7.59 H (1.4-6.5) K/uL Lymph # (Auto) 1.43 (1.2-3.4) K/uL [place] # (Auto) 0.91 H (0.11-0.59) K/uL Eos # (Auto) 0.00 (0-0.5) K/uL Baso # (Auto) 0.01 (0-0.2) K/uL Immature Gran # (Auto) 0.15 H (0.00-0.02) K/uL Sodium 139 (136-145) mmol/L Potassium 3.7 (3.5-5.1) mmol/L Chloride 106 (98-107) mmol/L Carbon Dioxide 28 (21-32) mmol/L Anion Gap 5.0 (3-11) BUN 22 H (7-18) mg/dl Creatinine 0.88 (0.6-1.4) mg/dl Est Cr Clr Drug Dosing 64.7 ml/min Est GFR ( Amer) 102.3 Est GFR (Non-Af Amer) 88.3 BUN/Creatinine Ratio 25.1 H (10-20) Glucose 96 (70-99) mg/dl Calcium 9.3 (8.5-10.1) mg/dl Magnesium 2.6 H (1.8-2.4) mg/dl Total Bilirubin 0.5 (0.2-1) mg/dl AST 19 (15-37) U/L ALT 22 (12-78) U/L Alkaline Phosphatase 70 (45-117) U/L C-Reactive Protein 2.24 H (0-0.29) mg/dl Total Protein 7.3 (6.4-8.2) gm/dl Albumin 2.2 L (3.4-5.0) gm/dl Globulin 5.1 H (2.5-4.0) gm/dl Albumin/Globulin Ratio 0.4 L (0.9-2) PG Care Time/CCT Total # of Minutes Spent Total Time Spent with Patient: Total time spent is greater than 50% in coordination of care (as documented) at patient's floor/unit and/or counseling patient: Coding Level of Care Code 07790 Subseq Hosp Care Lvl 3 Diagnoses COVID-19 U07.1 Weakness R53.1 Hypoxia R09.02 Chest pain R07.9 Sinus pause I45.5 DVT prophylaxis Z29.9
[2020-07-13] MEDS: ALBUTEROL HFA 8 GM INHALER INH SCH ×2 (00:41→07:25)
[2020-07-13 07:42] LABS: Basophils # (auto) 0.01 K/uL (0-0.2); Basophils % (auto) 0.1 %; Hematocrit (blood only) 39.1 % (42-52); Hemoglobin 13.5 g/dL (14.0-18.0); Immature Granulocytes # (auto) 0.16 K/uL (0.00-0.02); Immature Granulocytes % (auto) 1.9 %; Lymphocytes # (auto) 1.17 K/uL (1.2-3.4); Lymphocytes % (auto) 13.9 %; Mean Corpuscular Hemoglobin 32.5 pg (25-34); Mean Corpuscular Hgb Conc 34.5 g/dL (32-36); Mean Corpuscular Volume 94.2 fL (80-100); Mean Platelet Volume 9.5 fL (7.4-10.4); Monocytes # (auto) 0.52 K/uL (0.11-0.59); Monocytes % (auto) 6.2 %; Neutrophils # (auto) 6.55 K/uL (1.4-6.5); Neutrophils % (auto) 77.9 %; Platelet Count 618 K/uL (130-400); RDW Coefficient of Variation 14.4 % (11.5-14.5); Red Blood Count 4.15 M/uL (4.7-6.1); White Blood Count 8.41 K/uL (4.8-10.8)
[2020-07-13 08:14] LABS: Albumin Level 2.3 gm/dl (3.4-5.0); BUN Creatinine Ratio 24.9 (10-20); C Reactive Protein 4.36 mg/dl (0-0.29); Calcium 9.4 mg/dl (8.5-10.1); Creatinine Clr Calc Pharmacy 68.6 ml/min; Est GFR (African American) 104.8; Est GFR (Non-African American) 90.4; Magnesium 2.9 mg/dl (1.8-2.4)
[2020-07-13 08:23] LABS: Albumin Globulin Ratio 0.4 (0.9-2); Bilirubin,Total 0.5 mg/dl (0.2-1); Globulin 5.2 gm/dl (2.5-4.0); Phosphorus 3.9 mg/dl (2.5-4.9); Thyroid Stimulating Hormone 0.996 uIu/ml (0.300-4.500); Total Protein 7.5 gm/dl (6.4-8.2)
[2020-07-13] MEDS: dexAMETHasone 20 MG in DEXTROSE 5% 25 ML IV SCH (08:53)
[2020-07-13] MEDS: ENOXAPARIN INJ 40 MG/0.4 ML SYR SQ SCH ×2 (08:53→20:24)
[2020-07-13] MEDS ORDERED: dexAMETHasone 20 MG in SYRINGE 0 ML IV SCH (09:00)
[2020-07-13] MEDS ORDERED: ALBUTEROL HFA 8 GM INHALER INH PRN (09:05)
--- NOTE | 2020-07-13 09:26 | Cardiology Consultation ---
Date of Consultation July 13, 2020 Assessment & Plan (1) Sinus pause: 70-year-old male with no significant PMH admitted for COVID-19 pneumonia found to have several episodes of 2-3.8- second pauses on telemetry - Patient has remained asymptomatic from this standpoint - Telemetry and EKGs are not concerning for heart block at this point - Likely that this is an incidental finding and his single syncopal episode prior to admission was unrelated - Continue to monitor - If patient develops signs of AV tasia block, or develops symptoms that are concerning/possibly related to the pauses can reevaluate and consider pacemaker placement if indicated Supervising Physician Co-Signing Physician Notes I saw and examined the patient at the bedside and interviewed him with the available translation service. I agree with the documentation noted above. Briefly, the patient is a 70-year-old gentleman with no documented medical history who was admitted for COVID-19 pneumonia. He has been noted on telemetry to have episodes of sinus arrest lasting nearly 4 seconds. The patient did have a syncopal episode several days ago. He apparently was getting off of the toilet in order to brush his teeth when he began to feel dizzy and lightheaded and apparently passed out. He presented to the emergency room for evaluation at that time. He was discovered to have COVID-19 but was not hypoxic and was sent home. He does report continued symptoms of dizziness when getting up from bed or going to the bathroom. He did not report these symptoms while lying in bed. He cannot recall any additional syncopal episodes over the years. He does report having a sense of palpitations once in a while. His activity has been limited recently by his shortness of breath. However, before he contracted COVID-19 he was able to perform activity without chest pain or dyspnea. While he does have periods of sinus arrest, I do not believe there is an indication for intervention in the absence of associated symptoms. His current symptoms of dizziness and likely the syncopal episode he experienced appear to be related to changes in position and may represent a form of orthostatic hypotension. Possibly related to his viral illness as well. I think will have a better understanding of any symptoms when he is more ambulatory. Would continue him on telemetry currently. History of Present Illness Reason for Consultation: Recurrent sinus pauses vs/ blocked beats Attending Physician: Lita Orozco MD History of Present Illness Martin Guo is a 70-year-old male with no significant PMH who was admitted to [facility] on 07/09 for COVID-19 pneumonia and associated acute respiratory failure with hypoxia. During his admission he has been monitored on telemetry and has been found to have several episodes of sinus pauses lasting from 2-3.8 seconds in the past 2 days. All of the episodes have been asymptomatic--patient denies dizziness, lightheadedness, palpitation, loss of consciousness. Of note, 4 days before admission on 07/05, the patient had visited the ED here and had reported an episode of syncope. At that visit he was hydrated with IV fluids and sent home. He has had no syncopal episodes since and, as above, denies cardiac symptoms. The patient has had 4 EKGs in total since 07/05, all showing sinus rhythm with no signs of heart block. He has also had negative troponin x3. Allergies Allergy/AdvReac Type Severity Reaction Status Date / Time No Known Allergies Allergy Unverified 07/09/20 10:53 Home Medications Medication Instructions Recorded Confirmed Type No Known Home Medications 07/05/20 07/09/20 History Patient History Social History Smoking Status: Never smoker Hx Alcohol Use: No Hx Substance Use: No Preferred Language: Filipino Communication Tools: IPad Beliefs That Will Affect Care: None Current Living Situation: Family Feels Safe at Home: Yes Assistive Devices: Oxygen - Continuous Review of Systems Review of Systems: All systems reviewed & are unremarkable except as noted in HPI & below Physical Exam Constitutional: + ill appearing; no acute distress Eyes: + anicteric sclerae and EOM intact bilaterally; no conjunctival abnormality ENMT: Ears: no external ear abnormality Nose: no external nose abnormality Neck: normal visual inspection Respiratory: normal respiratory effort; no labored breathing Auscultation: + crackles (bilateral bases); no rhonchi and no wheezes Cardiovascular: RRR, no murmur, no edema Heart Sounds: normal S1 and normal S2 Gastrointestinal (Abdomen): normal bowel sounds, soft, nontender, no hepatosplenomegaly Skin: no rashes, warm and dry Neurologic: moves all extremities and awake; no focal motor deficits Psychiatric: A+Ox3, euthymic affect Speech: normal rate/rhythm/volume of speech Results & Data ([facility]) Vital Signs (Past 12 Hours) Vital Signs Temp Pulse Pulse Pulse Resp BP Pulse Ox 07/13/20 07:25 59 L 18 95 07/13/20 07:00 57 L 07/13/20 06:45 36.9 C 56 L 19 159/84 H 94 07/13/20 04:07 36.4 C L 65 18 153/86 H 94 07/13/20 04:00 07/13/20 01:48 58 L 07/13/20 00:42 57 L 20 94 07/12/20 23:25 36.5 C 65 19 148/84 H 95 Pulse Ox 07/13/20 07:25 07/13/20 07:00 07/13/20 06:45 07/13/20 04:07 07/13/20 04:00 91 07/13/20 01:48 07/13/20 00:42 07/12/20 23:25 PG Care Time/CCT Total # of Minutes Spent Total Time Spent with Patient: Total time spent is greater than 50% in coordination of care (as documented) at patient's floor/unit and/or counseling patient: Coding Level of Care Code 76885 Initial Inpt Care Lvl 3 Diagnoses Sinus pause I45.5 Resident Activity Tracking Resident Involvement: Resident Care Provided Care Provided: Adult Hospital Medicine
--- NOTE | 2020-07-13 16:16 | Electrocardiogram Report ---
Test Reason : Blood Pressure : / mmHG Vent. Rate : 069 BPM Atrial Rate : 069 BPM P-R Int : 170 ms QRS Dur : 098 ms QT Int : 442 ms P-R-T Axes : 052 019 046 degrees QTc Int : 473 ms Normal sinus rhythm Normal ECG When compared with ECG of 10-JUL-2020 08:57, No significant change was found Confirmed by Chandu Rodriguez ([id number]) on 07/13/2020 4:16:06 PM Referred By: REFERRED SELF Confirmed By:Will Rodriguez
--- NOTE | 2020-07-13 17:15 | Hospitalist Progress Note ---
Date of Service July 13, 2020 Assessment & Plan (1) COVID-19: Pneumonia due to coronavirus disease 2019 Presented after approximately 2 weeks of symptoms with headache, body aches, generalized weakness, shortness of breath, and cough. He actually had an episode of syncope several days prior to admission and was sent home from the ER on that day. Now presents with worsening and was found to have acute respiratory failure with hypoxia requiring oxygen Chest x-ray with multifocal pneumonia consistent with viral pneumonia Troponin negative, procalcitonin negative, CRP elevated at 9.63, ESR elevated at 70, D-dimer elevated at 1080, LFTs negative. Pulse ox was 86% on arrival and he was initially improved on 2 to 3 L nasal cannula, however oxygenation requirement has gone up since that time as high as 13 L nasal cannula Improved on 07/13, weaned down to 7 L nasal cannula. Incentive spirometry and flutter valve in prone position reinforced with him. He is in no respiratory distress Remains in sinus rhythm on telemetry with sinus pauses as below CRP trended downward to 2.24, but now is back up slightly to 4.36 -Continue telemetry monitoring -Continue Decadron high-dose regimen with 20 mg IV once daily x 5 day course followed by 10 mg x 5-day course to start on 07/17 -Would use Vapotherm if needs more than 10 L by nasal cannula -He is not a candidate for remdesivir or convalescent plasma as it has been about 2 weeks of symptoms at this point -Continue supplemental O2 to keep pulse ox greater than 90% and wean off as tolerated -Continue flutter valve and incentive spirometry -Continue Tessalon Perles but make as needed rather than scheduled -Chest pain is relieved with Tylenol and is likely due to inflammation/pleurisy -Continue Lovenox 40 mg SQ twice daily for DVT prophylaxis -Follow CBC, CMP, CRP every other day -Continue albuterol but make as needed (2) Weakness: From above. Now improving, ambulating independently to the bathroom in the room PT/OT consults appreciated (3) Hypoxia: As above (4) Chest pain: Was having constant chest pain for several days upon admission which was improved with Tylenol D-dimer is elevated but likely secondary to Covid Hypoxia secondary to bilateral multifocal infiltrates ECG is with nonspecific ST-T wave changes but nothing of significance and troponin is negative x2 Chest pain likely secondary to pleurisy and will continue Tylenol as needed (5) Sinus pause: Continues to have multiple 3-4.2-second sinus pauses on telemetry that are asymptomatic They are not necessarily associated with sleeping ECG performed here is normal Appreciate cardiology consultation-no intervention needed at this time, continue telemetry monitoring, and cardiology would like to see what his heart rate does with ambulation when he is able to once O2 requirement improves (6) DVT prophylaxis: Lovenox SQ twice daily given high risk for DVT/PE Disposition-continue telemetry status Full code would want us to call her sister for updates as she speaks Thai. Her agrees to this. Ellen Gomez 's sister: [phone] Admission and Anticipated Discharge Date Admission Date: July 09, 2020 Subjective Patient reports still some cough, denies shortness of breath or chest pain. He is moving his bowels and making urine. He is walking to the bathroom independently. He is weaned down to 7 L nasal cannula today. I discussed with him the importance of using the incentive spirometer and flutter valves. Telemetry he continues to have frequent sinus pauses ranging from 2.5 to 4.2 seconds that are completely asymptomatic each time as per nursing. I discussed his case with pearl peller Review of Systems Review of Systems: All systems reviewed & are unremarkable except as noted in HPI & below Physical Exam Constitutional: WD/WN, vitals as above Eyes: + anicteric sclerae Neck: trachea midline, no thyromegaly Respiratory: normal respiratory effort Auscultation: + crackles (At lower and middle lung alvarez bilaterally); no rhonchi and no wheezes Cardiovascular: RRR, no murmur, no edema Extremities: no calf tenderness Chest (Breasts): Chest: normal inspection of chest Gastrointestinal (Abdomen): normal bowel sounds, soft, nontender, no hepatosplenomegaly Musculoskeletal: Extremities: extremities normal to inspection; no cyanosis and no clubbing Skin: no rashes, warm and dry Neurologic: moves all extremities and awake; no focal motor deficits Psychiatric: Orientation: alert Eye Contact: good eye contact Speech: normal rate/rhythm/volume of speech Lymphatic: no lymphedema Results & Data Results & Data ([facility]) Vital Signs (Past 12 Hours) Vital Signs Temp Pulse Pulse Pulse Resp BP Pulse Ox 07/13/20 16:01 36.7 C 66 18 153/88 H 93 04/23/21 14:55 70 07/13/20 13:35 93 07/13/20 11:06 92 07/13/20 07:25 59 L 18 95 07/13/20 07:00 57 L 07/13/20 06:45 36.9 C 56 L 19 159/84 H 94 Laboratory Results 07/13/20 07/13/20 Range/Units 06:51 06:51 WBC 8.41 (4.8-10.8) K/uL RBC 4.15 L (4.7-6.1) M/uL Hgb 13.5 L (14.0-18.0) g/dL Hct 39.1 L (42-52) % MCV 94.2 (80-100) fL MCH 32.5 (25-34) pg MCHC 34.5 (32-36) g/dL RDW Std Deviation 50.0 H (36.4-46.3) fL RDW Coeff of Uri 14.4 (11.5-14.5) % Plt Count 618 H (130-400) K/uL MPV 9.5 (7.4-10.4) fL Immature Gran % (Auto) 1.9 % Neut % (Auto) 77.9 % Lymph % (Auto) 13.9 % [place] % (Auto) 6.2 % Eos % (Auto) 0.0 % Baso % (Auto) 0.1 % Neut # (Auto) 6.55 H (1.4-6.5) K/uL Lymph # (Auto) 1.17 L (1.2-3.4) K/uL [place] # (Auto) 0.52 (0.11-0.59) K/uL Eos # (Auto) 0.00 (0-0.5) K/uL Baso # (Auto) 0.01 (0-0.2) K/uL Immature Gran # (Auto) 0.16 H (0.00-0.02) K/uL Sodium 137 (136-145) mmol/L Potassium 4.0 (3.5-5.1) mmol/L Chloride 105 (98-107) mmol/L Carbon Dioxide 25 (21-32) mmol/L Anion Gap 7.0 (3-11) BUN 21 H (7-18) mg/dl Creatinine 0.83 (0.6-1.4) mg/dl Est Cr Clr Drug Dosing 68.6 ml/min Est GFR ( Amer) 104.8 Est GFR (Non-Af Amer) 90.4 BUN/Creatinine Ratio 24.9 H (10-20) Glucose 113 H (70-99) mg/dl Calcium 9.4 (8.5-10.1) mg/dl Phosphorus 3.9 (2.5-4.9) mg/dl Magnesium 2.9 H (1.8-2.4) mg/dl Total Bilirubin 0.5 (0.2-1) mg/dl AST 28 (15-37) U/L ALT 29 (12-78) U/L Alkaline Phosphatase 72 (45-117) U/L C-Reactive Protein 4.36 H (0-0.29) mg/dl Total Protein 7.5 (6.4-8.2) gm/dl Albumin 2.3 L (3.4-5.0) gm/dl Globulin 5.2 H (2.5-4.0) gm/dl Albumin/Globulin Ratio 0.4 L (0.9-2) TSH 0.996 (0.300-4.500) uIu/ml PG Care Time/CCT Total # of Minutes Spent Total Time Spent with Patient: Total time spent is greater than 50% in coordination of care (as documented) at patient's floor/unit and/or counseling patient: Coding Level of Care Code 12261 Subseq Hosp Care Lvl 3 Diagnoses COVID-19 U07.1 Weakness R53.1 Hypoxia R09.02 Chest pain R07.9 Sinus pause I45.5 DVT prophylaxis Z29.9
[2020-07-14] MEDS: dexAMETHasone 20 MG in DEXTROSE 5% 25 ML IV SCH (08:54)
[2020-07-14] MEDS: ENOXAPARIN INJ 40 MG/0.4 ML SYR SQ SCH ×2 (08:55→20:11)
--- NOTE | 2020-07-14 19:48 | Hospitalist Progress Note ---
Date of Service July 14, 2020 Assessment & Plan (1) COVID-19: Pneumonia due to coronavirus disease 2019 Presented after approximately 2 weeks of symptoms with headache, body aches, generalized weakness, shortness of breath, and cough. He actually had an episode of syncope several days prior to admission and was sent home from the ER on that day. Now presents with worsening and was found to have acute respiratory failure with hypoxia requiring oxygen Chest x-ray with multifocal pneumonia consistent with viral pneumonia Troponin negative, procalcitonin negative, CRP elevated at 9.63, ESR elevated at 70, D-dimer elevated at 1080, LFTs negative. Pulse ox was 86% on arrival and he was initially improved on 2 to 3 L nasal cannula, however oxygenation requirement has gone up since that time as high as 13 L nasal cannula Improved on 07/13, weaned down to 7 L nasal cannula. Incentive spirometry and flutter valve in prone position reinforced with him. On 07/14, weaned down to 6 L nasal cannula, improving He is in no respiratory distress Remains in sinus rhythm on telemetry with sinus pauses as below CRP trended downward to 2.24, but then back up slightly to 4.36 -Continue telemetry monitoring -Continue Decadron high-dose regimen with 20 mg IV once daily x 5 day course followed by 10 mg x 5-day course (10 mg dose to start on 07/17) -Would use Vapotherm if needs more than 10 L by nasal cannula -He is not a candidate for remdesivir or convalescent plasma as it has been about 2 weeks of symptoms at this point -Continue supplemental O2 to keep pulse ox greater than 90% and wean off as tolerated -Continue flutter valve and incentive spirometry -Continue Tessalon Perles as needed cough -Chest pain is relieved with Tylenol and is likely due to inflammation/pleurisy -Continue Lovenox 40 mg SQ twice daily for DVT prophylaxis -Follow CBC, CMP, CRP every other day -Continue albuterol as needed (2) Weakness: From above. Now improving, ambulating independently to the bathroom in the room PT/OT consults appreciated (3) Hypoxia: As above (4) Chest pain: Was having constant chest pain for several days upon admission which was improved with Tylenol D-dimer is elevated but likely secondary to Covid Hypoxia secondary to bilateral multifocal infiltrates ECG is with nonspecific ST-T wave changes but nothing of significance and troponin is negative x2 Chest pain likely secondary to pleurisy and will continue Tylenol as needed (5) Sinus pause: Continues to have multiple 3 to 4.2-second sinus pauses on telemetry that are asymptomatic They are not necessarily associated with sleeping ECG performed here is normal Appreciate cardiology consultation-no intervention needed at this time, continue telemetry monitoring, and cardiology would like to see what his heart rate does with ambulation when he is able to once O2 requirement improves (6) DVT prophylaxis: Lovenox SQ twice daily given high risk for DVT/PE Disposition-continue telemetry status Full code would want us to call her sister for updates as she speaks [place]. Patient agrees to this. Ellen Gomez 's sister: [phone] Discussed his care with Ellen on the phone on 07/14 Admission and Anticipated Discharge Date Admission Date: July 09, 2020 Subjective Patient reports still some cough but denies shortness of breath. He is eating and drinking, moving his bowels making urine. He has no complaints. He is using his incentive spirometer and flutter valve as well as proning. He is weaned down to 6 L nasal cannula by the evening. Telemetry continues with multiple sinus pauses with the longest being 3.4 seconds today, otherwise sinus bradycardia in the 50s. Review of Systems Review of Systems: All systems reviewed & are unremarkable except as noted in HPI & below Physical Exam Constitutional: WD/WN, vitals as above Eyes: + anicteric sclerae Neck: trachea midline, no thyromegaly Respiratory: normal respiratory effort Auscultation: + crackles (At lower and middle lung alvarez bilaterally); no rhonchi and no wheezes Cardiovascular: RRR, no murmur, no edema Extremities: no calf tenderness Chest (Breasts): Chest: normal inspection of chest Gastrointestinal (Abdomen): normal bowel sounds, soft, nontender, no hepatosplenomegaly Musculoskeletal: Extremities: extremities normal to inspection; no cyanosis and no clubbing Skin: no rashes, warm and dry Neurologic: moves all extremities and awake; no focal motor deficits Psychiatric: Orientation: alert Eye Contact: good eye contact Speech: normal rate/rhythm/volume of speech Lymphatic: no lymphedema Results & Data Results & Data ([facility]) Vital Signs (Past 12 Hours) Vital Signs Temp Pulse Pulse Resp BP Pulse Ox 07/14/20 19:32 36.7 C 58 L 19 126/75 96 07/14/20 16:00 59 L 07/14/20 15:05 36.4 C L 57 L 17 134/78 95 07/14/20 11:45 36.5 C 64 17 131/76 96 07/14/20 08:00 52 L PG Care Time/CCT Total # of Minutes Spent Total Time Spent with Patient: Total time spent is greater than 50% in coordination of care (as documented) at patient's floor/unit and/or counseling patient: Coding Level of Care Code 55948 Subseq Hosp Care Lvl 2 Diagnoses COVID-19 U07.1 Weakness R53.1 Hypoxia R09.02 Chest pain R07.9 Sinus pause I45.5 DVT prophylaxis Z29.9
[2020-07-15 06:13] LABS: Basophils # (auto) 0.01 K/uL (0-0.2); Basophils % (auto) 0.1 %; Eosinophils # (auto) 0.01 K/uL (0-0.5); Eosinophils % (auto) 0.1 %; Hematocrit (blood only) 38.2 % (42-52); Immature Granulocytes # (auto) 0.24 K/uL (0.00-0.02); Immature Granulocytes % (auto) 2.5 %; Lymphocytes # (auto) 1.82 K/uL (1.2-3.4); Lymphocytes % (auto) 18.6 %; Mean Corpuscular Hemoglobin 31.9 pg (25-34); Mean Corpuscular Volume 93.9 fL (80-100); Mean Platelet Volume 9.8 fL (7.4-10.4); Monocytes # (auto) 0.81 K/uL (0.11-0.59); Monocytes % (auto) 8.3 %; Neutrophils # (auto) 6.89 K/uL (1.4-6.5); Neutrophils % (auto) 70.4 %; Platelet Count 633 K/uL (130-400); RDW Coefficient of Variation 14.2 % (11.5-14.5); Red Blood Count 4.07 M/uL (4.7-6.1); White Blood Count 9.78 K/uL (4.8-10.8)
[2020-07-15 06:45] LABS: Albumin Level 2.2 gm/dl (3.4-5.0); BUN Creatinine Ratio 31.3 (10-20); Calcium 8.8 mg/dl (8.5-10.1); Creatinine Clr Calc Pharmacy 68.6 ml/min; Est GFR (African American) 104.8; Est GFR (Non-African American) 90.4; Magnesium 2.6 mg/dl (1.8-2.4); Potassium 4.1 mmol/L (3.5-5.1)
[2020-07-15 06:48] LABS: Albumin Globulin Ratio 0.4 (0.9-2); Bilirubin,Total 0.5 mg/dl (0.2-1); C Reactive Protein 1.9 mg/dl (0-0.29); Globulin 5.2 gm/dl (2.5-4.0); Phosphorus 3.8 mg/dl (2.5-4.9); Total Protein 7.4 gm/dl (6.4-8.2)
[2020-07-15] MEDS: dexAMETHasone 20 MG in DEXTROSE 5% 25 ML IV SCH (09:22)
[2020-07-15] MEDS: ENOXAPARIN INJ 40 MG/0.4 ML SYR SQ SCH ×2 (09:27→20:32)
--- NOTE | 2020-07-15 14:25 | Hospitalist Progress Note ---
Date of Service July 15, 2020 Assessment & Plan (1) COVID-19: Pneumonia due to coronavirus disease 2019 Presented after approximately 2 weeks of symptoms with headache, body aches, generalized weakness, shortness of breath, and cough. He had an episode of syncope several days prior to admission and was sent home from the ER on that day as he was not hypoxic. Now presents with worsening and was found to have acute respiratory failure with hypoxia requiring oxygen Chest x-ray with multifocal pneumonia consistent with viral pneumonia Upon admission, troponin negative, procalcitonin negative, CRP elevated at 9.63, ESR elevated at 70, D-dimer elevated at 1080, LFTs negative. Pulse ox was 86% on arrival and he was initially improved on 2 to 3 L nasal cannula, however oxygenation requirement has gone up since that time as high as 13 L nasal cannula Improved on 07/13, weaned down to 7 L nasal cannula. Incentive spirometry and flutter valve in prone position reinforced with him. On 07/14, weaned down to 6 L nasal cannula, improving On 07/15, significantly improved and now weaned down to 3 L and can likely continue to wean down his pulse ox in the mid 90s. He is in no respiratory distress Remains in sinus rhythm on telemetry with sinus pauses as below which are also improving CRP trended downward now all the way down to 1.9 -Continue telemetry monitoring -Increased dose of Decadron to high-dose regimen with 20 mg IV once daily x 5 day course, however he is now rapidly improving-will decrease back to 6 mg daily for tomorrow to finish on 10-day course -Would use Vapotherm if needs more than 10 L by nasal cannula -He is not a candidate for remdesivir or convalescent plasma as it has been about 2 weeks of symptoms at this point -Continue supplemental O2 to keep pulse ox greater than 90% and wean off as tolerated -Continue flutter valve and incentive spirometry -Continue Tessalon Perles as needed for cough -Chest pain is now resolved and was relieved with Tylenol-likely due to inflammation/pleurisy -Continue Lovenox 40 mg SQ twice daily for DVT prophylaxis -Follow CBC, BMP in the morning -Continue albuterol as needed -Will need a two-step walk test prior to discharge-could possibly be discharged on Thursday or Thursday (2) Weakness: From above. Now improving, ambulating independently to the bathroom in the room PT/OT consults appreciated-can be discharged to home when medically stable (3) Hypoxia: As above Will likely need a two-step walk test prior to discharge on Thursday or Thursday (4) Chest pain: Was having constant chest pain for several days upon admission which was improved with Tylenol D-dimer is elevated but likely secondary to Covid Hypoxia secondary to bilateral multifocal infiltrates ECG is with nonspecific ST-T wave changes but nothing of significance and troponin is negative x2 Chest pain likely secondary to pleurisy and will continue Tylenol as needed (5) Sinus pause: Continued to have multiple 3 to 4.2-second sinus pauses on telemetry that are asymptomatic They are not necessarily associated with sleeping ECG performed here is normal Appreciate cardiology consultation-no intervention needed at this time, continue telemetry monitoring, and cardiology would like to see what his heart rate does with ambulation when he is able to once O2 requirement improves Longest sinus pause on 07/15 was down to only 2.9 seconds (6) Thrombocytosis: Platelets continue to trend upward to 633 today Likely reactive thrombocytosis due to Covid-19 infection and inflammation Continue to follow CBC in the morning -Will add on aspirin 81 mg daily for prophylaxis (7) DVT prophylaxis: Lovenox SQ twice daily given high risk for DVT/PE, consider sending home with Xarelto 10 mg once daily x35 days for VTE prophylaxis We will add on Protonix for GI prophylaxis given high-dose steroids for a prolonged period Disposition-continue telemetry status, but possibly discharge to home on Thursday or Thursday if respiratory status continues to improve Full code requests us to call her sister for updates as she speaks Arabic. Patient agrees to this. Ellen Gomez ('s sister): [phone] Discussed his care with Ellen on the phone Admission and Anticipated Discharge Date Admission Date: July 09, 2020 Subjective Patient feeling well today. Still some cough. Weaned down to 3 L nasal cannula. He is eating and drinking, moving his bowels, ambulating to the bathroom and back. Feeling better. Telemetry with normal sinus rhythm with rates in the 70s, and only the longest sinus pause was 2.9 seconds which is an improvement from previous Review of Systems Review of Systems: All systems reviewed & are unremarkable except as noted in HPI & below Physical Exam Constitutional: WD/WN, vitals as above Eyes: + anicteric sclerae Neck: trachea midline, no thyromegaly Respiratory: normal respiratory effort Auscultation: + crackles (At lower and middle lung alvarez bilaterally); no rhonchi and no wheezes Cardiovascular: RRR, no murmur, no edema Extremities: no calf tenderness Chest (Breasts): Chest: normal inspection of chest Gastrointestinal (Abdomen): normal bowel sounds, soft, nontender, no hepatosplenomegaly Musculoskeletal: Extremities: extremities normal to inspection; no cyanosis and no clubbing Skin: no rashes, warm and dry Neurologic: moves all extremities and awake; no focal motor deficits Psychiatric: Orientation: alert Eye Contact: good eye contact Speech: normal rate/rhythm/volume of speech Lymphatic: no lymphedema Results & Data Results & Data ([facility]) Vital Signs (Past 12 Hours) Vital Signs Temp Pulse Pulse Pulse Resp BP Pulse Ox 07/15/20 11:06 36.7 C 70 18 131/84 93 07/15/20 09:28 94 07/15/20 08:00 45 L 07/15/20 07:41 94 07/15/20 07:14 36.8 C 56 L 18 135/78 94 07/15/20 06:14 49 L 07/15/20 04:14 37 C 55 L 16 127/79 92 07/15/20 04:00 Pulse Ox 07/15/20 11:06 07/15/20 09:28 07/15/20 08:00 07/15/20 07:41 07/15/20 07:14 07/15/20 06:14 07/15/20 04:14 07/15/20 04:00 95 Laboratory Results 07/15/20 07/15/20 Range/Units 05:19 05:19 WBC 9.78 (4.8-10.8) K/uL RBC 4.07 L (4.7-6.1) M/uL Hgb 13.0 L (14.0-18.0) g/dL Hct 38.2 L (42-52) % MCV 93.9 (80-100) fL MCH 31.9 (25-34) pg MCHC 34.0 (32-36) g/dL RDW Std Deviation 49.0 H (36.4-46.3) fL RDW Coeff of Uri 14.2 (11.5-14.5) % Plt Count 633 H (130-400) K/uL MPV 9.8 (7.4-10.4) fL Immature Gran % (Auto) 2.5 % Neut % (Auto) 70.4 % Lymph % (Auto) 18.6 % [place] % (Auto) 8.3 % Eos % (Auto) 0.1 % Baso % (Auto) 0.1 % Neut # (Auto) 6.89 H (1.4-6.5) K/uL Lymph # (Auto) 1.82 (1.2-3.4) K/uL [place] # (Auto) 0.81 H (0.11-0.59) K/uL Eos # (Auto) 0.01 (0-0.5) K/uL Baso # (Auto) 0.01 (0-0.2) K/uL Immature Gran # (Auto) 0.24 H (0.00-0.02) K/uL Sodium 138 (136-145) mmol/L Potassium 4.1 (3.5-5.1) mmol/L Chloride 106 (98-107) mmol/L Carbon Dioxide 26 (21-32) mmol/L Anion Gap 6.0 (3-11) BUN 26 H (7-18) mg/dl Creatinine 0.83 (0.6-1.4) mg/dl Est Cr Clr Drug Dosing 68.6 ml/min Est GFR ( Amer) 104.8 Est GFR (Non-Af Amer) 90.4 BUN/Creatinine Ratio 31.3 H (10-20) Glucose 90 (70-99) mg/dl Calcium 8.8 (8.5-10.1) mg/dl Phosphorus 3.8 (2.5-4.9) mg/dl Magnesium 2.6 H (1.8-2.4) mg/dl Total Bilirubin 0.5 (0.2-1) mg/dl AST 21 (15-37) U/L ALT 41 (12-78) U/L Alkaline Phosphatase 73 (45-117) U/L C-Reactive Protein 1.90 H (0-0.29) mg/dl Total Protein 7.4 (6.4-8.2) gm/dl Albumin 2.2 L (3.4-5.0) gm/dl Globulin 5.2 H (2.5-4.0) gm/dl Albumin/Globulin Ratio 0.4 L (0.9-2) PG Care Time/CCT Total # of Minutes Spent Total Time Spent with Patient: Total time spent is greater than 50% in coordination of care (as documented) at patient's floor/unit and/or counseling patient: Coding Level of Care Code 64229 Subseq Hosp Care Lvl 3 Diagnoses COVID-19 U07.1 Weakness R53.1 Hypoxia R09.02 Chest pain R07.9 Sinus pause I45.5 Thrombocytosis D47.3 DVT prophylaxis Z29.9
[2020-07-15] MEDS: PANTOprazole 40 MG TAB PO SCH (20:32)
[2020-07-16] MEDS: PANTOprazole 40 MG TAB PO SCH (08:03)
[2020-07-16] MEDS: ENOXAPARIN INJ 40 MG/0.4 ML SYR SQ SCH (08:04)
[2020-07-16 08:26] LABS: Basophils # (auto) 0.01 K/uL (0-0.2); Basophils % (auto) 0.1 %; Eosinophils # (auto) 0.02 K/uL (0-0.5); Eosinophils % (auto) 0.2 %; Hematocrit (blood only) 42.3 % (42-52); Hemoglobin 14.4 g/dL (14.0-18.0); Immature Granulocytes # (auto) 0.25 K/uL (0.00-0.02); Immature Granulocytes % (auto) 2.8 %; Lymphocytes # (auto) 2.22 K/uL (1.2-3.4); Lymphocytes % (auto) 24.7 %; Mean Corpuscular Hemoglobin 32.1 pg (25-34); Mean Corpuscular Volume 94.2 fL (80-100); Monocytes % (auto) 5.6 %; Neutrophils # (auto) 5.99 K/uL (1.4-6.5); Neutrophils % (auto) 66.6 %; Platelet Count 632 K/uL (130-400); RDW Coefficient of Variation 14.2 % (11.5-14.5); RDW Standard Deviation 48.9 fL (36.4-46.3); Red Blood Count 4.49 M/uL (4.7-6.1); White Blood Count 8.99 K/uL (4.8-10.8)
[2020-07-16] MEDS ORDERED: ASPIRIN 81 MG ECTAB PO SCH (09:00)
[2020-07-16] MEDS ORDERED: dexAMETHasone 6 MG in SYRINGE 0 ML IV SCH (09:00)
[2020-07-16] MEDS ORDERED: dexAMETHasone 6 MG in DEXTROSE 5% 25 ML IV SCH (09:00)
[2020-07-16 09:04] LABS: BUN Creatinine Ratio 27.1 (10-20); Calcium 9.4 mg/dl (8.5-10.1); Creatinine Clr Calc Pharmacy 58.1 ml/min; Est GFR (African American) 91.4; Est GFR (Non-African American) 78.9; Potassium 3.8 mmol/L (3.5-5.1)
--- NOTE | 2020-07-16 11:50 | Discharge Summary ---
Date of Service July 16, 2020 Admission HPI Per Admitting Provider History obtained via cruise guide. at bedside. 70 yo male with no significant past medical history. Presents to the ER with 2 week history of fatigue cough with worsening SHOB. Patient came to the hospital about 4 days ago for these symptoms, but was found to be on Room air and did not meet criteria for admission. He states though that over the past 2 days, his cough and SOB has become worse, and patient also has a poor apetite. This prompted the patient to return. PMH: Lipoma reolved over 3 years ago from neck Principal Diagnosis COVID 19 pneumonia with acute hypoxic respiratory failure Discharge Exam Constitutional WD/WN, vitals as above Neck trachea midline, no thyromegaly Respiratory normal respiratory effort, lungs clear to auscultation Cardiovascular RRR, no murmur, no edema Gastrointestinal (Abdomen) normal bowel sounds, soft, nontender, no hepatosplenomegaly Musculoskeletal no cyanosis or clubbing, extremities motor strength 5/5 Skin no rashes, warm and dry Neurologic patellar DTR's 2+ bilat, sensation intact and PERRL, EOMI, accommodation nl, no face palsy, no dysarthria Psychiatric A+Ox3, euthymic affect Lymphatic no cervical or axillary lymphadenopathy Discharge Data Allergies Allergy/AdvReac Type Severity Reaction Status Date / Time No Known Allergies Allergy Unverified 07/09/20 10:53 Consultations 07/09/20 11:01 ED Decision to Admit Stat 07/12/20 18:28 Consult Cardiology Routine Hospital Course (1) COVID-19: Pneumonia due to coronavirus disease 2019 Presented after approximately 2 weeks of symptoms with headache, body aches, generalized weakness, shortness of breath, and cough. He had an episode of syncope several days prior to admission and was sent home from the ER on that day as he was not hypoxic. Now presents with worsening and was found to have acute respiratory failure with hypoxia requiring oxygen Chest x-ray with multifocal pneumonia consistent with viral pneumonia Upon admission, troponin negative, procalcitonin negative, CRP elevated at 9.63, ESR elevated at 70, D-dimer elevated at 1080, LFTs negative. Pulse ox was 86% on arrival and he was initially improved on 2 to 3 L nasal cannula, however oxygenation requirement has gone up since that time as high as 13 L nasal cannula Improved on 07/13, weaned down to 7 L nasal cannula. Incentive spirometry and flutter valve in prone position reinforced with him. On 07/14, weaned down to 6 L nasal cannula, improving On 07/15, significantly improved and now weaned down to 3 L on 07/16 he was weaned down to room air performed two step on 07/16, no oxygen needed at rest or on exertion CRP trended downward now all the way down to 1.9 discharge to home on a few more days of dexamethasone stay well nourished and well hydrated (2) Weakness: From above. Now improving, ambulating independently to the bathroom in the room PT/OT consults appreciated-can be discharged to home when medically stable (3) Hypoxia: As above hypoxemia is resolved, down to room air at rest and on exertion, two step done day of discharge (4) Chest pain: Was having constant chest pain for several days upon admission which was improved with Tylenol D-dimer is elevated but likely secondary to Covid Hypoxia secondary to bilateral multifocal infiltrates ECG is with nonspecific ST-T wave changes but nothing of significance and troponin is negative x2 Chest pain likely secondary to pleurisy and will continue Tylenol as needed (5) Sinus pause: had several 2-3 second sinus pauses on telemetry that are asymptomatic They are not necessarily associated with sleeping ECG performed here is normal Appreciate cardiology consultation-no intervention needed at this time, continue telemetry monitoring Longest sinus pause on 07/15 was down to only 2.9 seconds follow up with cardiology in the office, could consider outpatient monitoring (6) Thrombocytosis: Likely reactive thrombocytosis due to Covid-19 infection and inflammation -continue aspirin 81 mg daily on discharge (7) DVT prophylaxis: Lovenox SQ twice daily Total Time Total Time Spent Total Time Spent (In Minutes): 35 minutes Total Time Includes: Examination of the Patient, Discharge Planning and Medication Reconciliation Discharge Plan Discharge Items Patient Disposition: Home - Self-Care Reason For Visit: COVID 19 Discharge Diagnosis: COVID 19 pneumonia Acute hypoxic respiratory failure Condition on Discharge: Good Goals: stay well nourished, well hydrated, well rested complete 3 more days of dexamethasone (steroid) Activity: Resume your previous activity Driving/Machine Use: No limitations Weightbearing: Full weightbearing Non-emergency contact: Primary Care Provider Call non-emergency contact if: you have any medication questions and your symptoms worsen Follow-up/Referrals: Evi George PA-C [Primary Care Provider] - (one week appt requested. The office will call you with a date/time) Diet: Regular Addtl Attending Provider Instructions: Medications - DEXAMETHASONE: 6mg daily for three more days, next dose due tomorrow morning - ASPIRIN: 81mg daily, studies have shown that this can improve outcomes with COVID, continue for the next 2-3 months if you tolerate the aspirin, it would not be a bad idea to continue indefinitely for heart protection COVID 19 infection, acute hypoxia responded well to treatment down to room air today both at rest and on exertion, no home oxygen needed finish course of dexamethasone stay well nourished, well hydrated, well rested you are no longer contagious, you DO NOT need to be in isolation or quarantine when you go home Pending Studies at Discharge: No Stand-Alone Forms: My [facility] [address] [employer], Smoking Cessation Medications and DC Order Prescriptions: New aspirin 81 mg Tablet,Delayed Release (Dr/Ec) 81 mg PO QAM 30 Days Qty: 30 RF: 0 dexamethasone 4 mg tablet 6 mg PO DAILY 3 Days Qty: 5 RF: 0 Discharge Orders: Discharge Order (Routine); Ordered 07/16/20 Ordered By: Dl Scott Admission Data Admit Date/Time: 07/09/20 11:13 Attending Provider: Dl Scott Admit Provider: Yong Manrique Primary Care Provider: Evi George Other Providers: Yong Manrique ; German Mahajan. Other Interventions: Discharge Summary Assessment (RN) Last Done: 07/16/20 12:51 Coding Level of Care Code D/C Day Management >30 mins Diagnoses COVID-19 U07.1 Weakness R53.1 Hypoxia R09.02 Chest pain R07.9 Sinus pause I45.5 Thrombocytosis D47.3 DVT prophylaxis Z29.9
== END 2020-07-16 16:19 | disposition home or self-care (01) | DRG 177 ==
LOC: ED 08:50 → SUATTDRO 11:13 → 2S 11:13